=== PATIENT | male | born 1995 | race Caucasian/White ===

== ENCOUNTER 2018-04-05 17:24 | Emergency (ER) | payer MEDICAID ==
[~2018-04-05] VITALS: Ht 175.3 cm; Wt 95.0 kg
[2018-04-05] MEDS ORDERED: SODIUM CHLORIDE 0.9% 1,000 ML IV ONE (18:21)
[2018-04-05] MEDS ORDERED: MORPHINE SULFATE 4 MG/ML CPJ (NOT FOR IM USE) IV STA (18:21)
[2018-04-05] MEDS ORDERED: ONDANSETRON HCL 4MG/2ML INJ IV STA (18:21)
[2018-04-05] MEDS ORDERED: KETOROLAC 30MG/ML VIAL IV ONE (18:45)
[2018-04-05 19:14] LABS: HEMATOCRIT. 44.2 % (42.0-52.0); HEMOGLOBIN. 15.4 g/dL (14.0-18.0); MEAN CORPUSCULAR HEMOGLOBIN 32.1 pg (28.0-32.0); MEAN CORPUSCULAR VOLUME 92.1 fL (80.0-94.0); MEAN PLATELET VOLUME 8.7 fl (7.4-10.4); PLATELET 177 x1000/uL (130-400)
[2018-04-05 19:15] LABS: CLARITY URINE CLEAR (CLEAR); COLOR URINE YELLOW (YELLOW); KETONES URINE NEGATIVE (NEGATIVE); LEUKOCYTE ESTERASE URINE NEGATIVE (NEGATIVE); NITRITE URINE NEGATIVE (NEGATIVE); OCCULT BLOOD URINE NEGATIVE (NEGATIVE); PROTEIN URINE NEGATIVE (NEGATIVE); SPECIFIC GRAVITY URINE 1.009 (1.005-1.030)
[2018-04-05 19:19] LABS: PROTHROMBIN TIME 10.5 sec (9.1-11.1)
[2018-04-05 19:22] LABS: CHLORIDE 103 mEq/L (98-107)
[2018-04-05 20:03] LABS: ATYPICAL LYMPHOCYTES 7; PLATELET ESTIMATE NORMAL
[2018-04-05 20:32] VITALS: BP 115/96
== END 2018-04-05 20:36 | disposition home or self-care (01) ==
LOC: ER 17:24
DX: K04.7 Periapical abscess without sinus (principal); R51 Headache; R74.8 Abnormal levels of other serum enzymes; R10.817 Generalized abdominal tenderness; F90.9 Attention-deficit hyperactivity disorder, unspecified type; R11.0 Nausea
CPT/HCPCS: 36415; 80053; 81003; 83690; 85025; 85610; 96374; 96375; 99285; J1885; J2270; J2405; J7030